=== PATIENT | female | born 1960 | race Caucasian/White ===

== ENCOUNTER 2016-08-24 11:10 | Outpatient (CLI) | payer OTHER ==
[2016-05-03 20:01] VITALS: BMI 27.4
[2016-08-24 11:28] VITALS: BP 132/74; TEMP 98.1
== END 2016-08-24 11:11 | disposition home or self-care (01) ==
LOC: LAB 11:10 → OPMED 11:11
PROVIDERS: ATTEND Family Medicine
DX: Z45.2 Encounter for adjustment and management of vascular access device (principal)
CPT/HCPCS: 96523

== ENCOUNTER 2016-10-01 10:44 | Emergency (ER) ==
[2016-10-01 10:54] VITALS: BP 131/92; TEMP 98; BMI 25.8
--- NOTE | 2016-10-01 15:09 | CT ---
EXAM: CT thoracic spine without contrast. HISTORY: Initial presentation for back pain at the T2 and L3 levels following a fall. COMPARISON: Chest CT 05/03/2016. TECHNIQUE: Multiple axial images of the thoracic spine were obtained without intravenous contrast. Images were reformatted in the sagittal and coronal planes. FINDINGS: Old burst fracture of T12 appears stable. Thoracic spine vertebral body heights are othe rwise normal with normal alignment. There is flattening of the ventral thecal sac at T11-12 due to retropulsion of the posterior-superior endplate of T12. Otherwise no significant spinal stenosis id entified in the thoracic spine. Scarring in the right upper lobe noted. Right-sided chest port is only partially imaged. IMPRESSION: 1. No acute abnormality of the thoracic spine. 2. Old T12 burst fracture.
--- NOTE | 2016-10-01 15:14 | CT ---
EXAM: CT of the lumbar spine without contrast History: Back trauma. Comparison: Thoracic spine CT 10/01/2016, lumbar spine CT 10/25/2015 Technique: Multiplanar CT images through the lumbar spine were obtained without the administration of IV contrast Findings: Atherosclerotic vascular calcifications. Stable posterior fusion hardware where at L3-L4. No acute fracture or subluxation. Chronic T12 compression deformity. Stable grade 1 anterolisthesi s of L4 on L5. Moderate to severe left-sided bony neural foraminal narrowing at L4-L5 and severe ri ght-sided bony neural foraminal narrowing at L5-S1 with possible exiting nerve root encroachment. Impression: 1. No acute osseous abnormality of the lumbar spine. 2. Stable hardware. 3. Moderate to severe left-sided bony neural foraminal narrowing at L4-L5. 4. Severe right-sided bony neural foraminal narrowing at L5-S1 with possible exiting nerve root enc roachment.
--- NOTE | 2016-10-01 15:19 | ED.PDOC ---
General ED Provider: Dr. ALEENA LOUIS JR Chief Complaint: Fall Stated Complaint: STEPPED IN CULVERT AND FELL. LANDED ON BACK. [ End ] 98.0 94 20 97% 131/92 01/24. SZ GERD ANX MIGR rsds HYST 8YRS. HYSTERECTOMY 8 yrs ago. LUMBAR FUSION 2004. cervical spine fusion. RIGHT ANKLE TENDON REPAIR. 14 HAND SURGERYS. PATIENT WITNESSED BY REGISTRATION LOWERING SELF TO FLOOR. DID NOT FALL HARD OR HIT HEAD. RENETTA SU RN WENT OUT TO PATIENT AND WHEN SHE WAS YUSUF GTO HELP PATIENT UP PATIENT STATED"DON'T PULL ON ME." PATIENT TREARFUL. WANTS TO MAKE COMPLAINT. [ End ]NECK BACK PELVIS ON RIGHT Time Seen by Physician: 14:20 Mode of Arrival: Walk-In Information Source: Patient Exam Limitations: No limitations, Clinical condition Nursing and Triage Documentation Reviewed and Agree: No Review of Systems - Review Of Systems Constitutional: Reports: No symptoms Eyes: Reports: No symptoms Ears, Nose, Mouth, Throat: Reports: No symptoms Respiratory: Reports: No symptoms Cardiac: Reports: No symptoms GI: Reports: No symptoms : Reports: No symptoms Musculoskeletal: Reports: Back pain, Neck pain Skin: Reports: Lesions, Lumps Neurological: Reports: Anxiety Endocrine: Reports: No symptoms Hematologic/Lymphatic: Reports: No symptoms All Other Systems: Other Past Medical History - Past Medical History Endocrine: Reports: None Cardiovascular: Reports: None Respiratory: Reports: None Hematological: Reports: None Gastrointestinal: Reports: GERD Genitourinary: Reports: None Neuro/Psych: Reports: Migraine, Seizure, Anxiety Musculoskeletal: Reports: None Cancer: Reports: None Last Menstrual Period: NA Other Pertinent Past Medical History: 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 - Surgical History General Surgical History: Reports: Hysterectomy, Back Surgery (LUMBAR FUSION cervical spine fusion) - Family History Family History: Reports: Unknown - Social History Smoking Status: Current some day smoker, Light tobacco smoker Hx Substance Use: No Alcohol Screening: Occasionally - Immunizations Tetanus Shot up to Date: Yes Physical Exam - Physical Exam Appearance: Ill-appearing Pain Distress: Moderate Eyes: NASIM, EOMI, Conjunctiva clear ENT: Ears normal, Nose normal, Oropharynx normal Neck: Supple Respiratory: Airway patent, Breath sounds clear, Breath sounds equal, Respirations nonlabored Cardiovascular: RRR, Pulses normal, No rub, No murmur GI/: Soft, Nontender, No masses, Bowel sounds normal, No Organomegaly Musculoskeletal: Normal strength, ROM intact, No edema, No calf tenderness ( tender t2 to left and tender to left of L3) Skin: Warm, Dry, Normal color Neurological: Sensation intact, Motor intact, Reflexes intact, Cranial nerves intact, Alert, Oriented (pain with sltraight leg raise not reproducible) Psychiatric: Affect appropriate, Mood appropriate Critical Care Note - Critical Care Note Total Time (mins): 0 Course - Course Orders, Labs, Meds: Orders Category Date Time Status Orphenadrine Citrate [Norflex] MEDS 10/01/16 15:57 Stat 60 mg IM ONCE STA CT LUMBAR SPINE W/O CONTRAST Stat RADS 10/01/16 14:[address] THORACIC SPINE W/O CONTRAST Stat RADS 10/01/16 14:29 Completed Medications Generic Name Dose Route Start Last Admin Trade Name Freq PRN Reason Stop Dose Admin Orphenadrine Citrate 60 mg 10/01/16 15:57 Norflex IM 10/01/16 15:58 ONCE STA Vital Signs: Temp Pulse Resp BP Pulse Ox 10/01/16 10:49 98 F 94 H 20 131/92 H 97 Departure - Departure Time of Disposition: 15:58 Disposition: HOME SELF-CARE Discharge Problem: Falls Back contusion Qualifiers: Encounter type: initial encounter Laterality: left Qualifier Code: (S20.222A) Contusion of left back wall of thorax, initial encounter Instructions: Contusion in Adults (ED) Condition: Good Pt referred to PMD for follow-up: Yes Additional Instructions: no lifting for three days avoid bed rest unless sleeping ice 20 minutes three times a day may use soma for spasms discuss with your physician Prescriptions: Carisoprodol [Soma] 350 mg PO TID PRN #14 tablet PRN Reason: Spasms Allergies/Adverse Reactions: Allergies carbamazepine [From Tegretol] Adverse Reaction (Verified 10/01/16 10:46) clonidine HCl [From Catapres] Adverse Reaction (Verified 10/01/16 10:46) divalproex sodium [From Depakote] Adverse Reaction (Verified 10/01/16 10:46) haloperidol [From Haldol] Adverse Reaction (Verified 10/01/16 10:46) haloperidol lactate [From Haldol] Adverse Reaction (Verified 10/01/16 10:46) indomethacin [From Indocin] Adverse Reaction (Verified 10/01/16 10:46) indomethacin sodium [From Indocin] Adverse Reaction (Verified 10/01/16 10:46) ketorolac tromethamine [From Toradol] Adverse Reaction (Verified 10/01/16 10:46) morphine Adverse Reaction (Verified 10/01/16 10:46) phenobarbital Adverse Reaction (Verified 10/01/16 10:46) phenytoin sodium [From Dilantin] Adverse Reaction (Verified 10/01/16 10:46) phenytoin sodium extended [From Dilantin] Adverse Reaction (Verified 10/01/16 10 :46) sumatriptan [From Imitrex] Adverse Reaction (Verified 10/01/16 10:46) sumatriptan succinate [From Imitrex] Adverse Reaction (Verified 10/01/16 10:46) Home Medications: Ambulatory Orders Oxycodone HCl/Acetaminophen [Percocet 10-325 mg Tablet] 10 - 325 mg PO QID PRN 03/13/13 Lamotrigine [Lamictal] 100 mg PO QDAC 12/20/14 Pantoprazole Sodium [Protonix] 40 mg PO DAILY 12/20/14 Sucralfate Susp [Carafate] 1 gm PO ACHS 12/20/14 Diphenhydramine HCl [Benadryl] 50 mg PO DAILY PRN 10/25/15 Carisoprodol [Soma] 350 mg PO DAILY 05/03/16 Clonazepam 2 mg PO TID #90 05/03/16 Lamotrigine [Lamictal] 200 mg PO BEDTIME 05/03/16 Quetiapine Fumarate [Seroquel] 300 mg PO BEDTIME #30 05/03/16 Trazodone HCl 100 mg PO BEDTIME #30 05/03/16 Zolpidem Tartrate [Ambien] 10 mg PO BEDTIME #30 05/03/16 Albuterol Sulfate [Proair Hfa] 2 puff IH BID 06/04/16 Budesonide [Pulmicort] 1 mg IH DAILY 06/04/16 Carisoprodol [Soma] 350 mg PO TID PRN #14 tablet 10/01/16
[2016-10-01] MEDS ORDERED: NORFLEX IM STA (15:57)
== END 2016-10-01 17:34 | disposition home or self-care (01) ==
LOC: ED 10:44
DX: S20.222A Contusion of left back wall of thorax, initial encounter (principal); M54.2 Cervicalgia; W19.XXXA Unspecified fall, initial encounter; F17.210 Nicotine dependence, cigarettes, uncomplicated
CPT/HCPCS: 96372; 99283

== ENCOUNTER 2017-01-30 19:04 | Emergency (ER) ==
[2017-01-30 19:17] VITALS: BP 141/104; TEMP 98.8; BMI 27.4
[2017-01-30 19:47] LABS: BASOPHILS % (AUTO) 0.5 % (0.0-3.0); EOSINOPHILS # (AUTO) 0.1 K/ul (0.0-0.7); HEMATOCRIT 38.4 % (37.0-47.0); HEMOGLOBIN 13.2 g/dl (12.0-16.0); IMMATURE GRANULOCYTE % (AUTO) 0.2 % (0.0-5.0); LYMPHOCYTES # (AUTO) 1.9 K/uL (0.60-3.4); LYMPHOCYTES % (AUTO) 31.5 (10.0-50.0); MEAN CORPUSCULAR HEMOGLOBIN 29.3 pg (27.0-31.0); MEAN CORPUSCULAR HGB CONC 34.4 (31.8-35.4); MEAN CORPUSCULAR VOLUME 85.3 fl (81.0-99.0); MONOCYTES # (AUTO) 0.3 K/uL (0.4-2.0); MONOCYTES % (AUTO) 5.6 (0-10); NEUTROPHILS # (AUTO) 3.7 K/ul (2.0-6.9); NEUTROPHILS % (AUTO) 61.2; PLATELET COUNT 290 10^3/uL (140-440); WHITE BLOOD COUNT 6.06 K/ul (4.6-10.2)
--- NOTE | 2017-01-30 20:05 | ED.PDOC ---
General ED Provider: Dr. LOLY DELEON Chief Complaint: Altered Mental Status Stated Complaint: Ambulance was called by a neighbour who though she was not acting herself. when she was picked up by EMT she was complaining of lower back pain. she states that she was seen in the hospital yesterday could not remember which hospital initally she make them think she was at [facility]. She was appraently at [facility]. Cousin who is the POA states that some times she gets confused and then the symtoms go away. Time Seen by Physician: 20:01 Mode of Arrival: Ambulance Information Source: Patient, EMT Exam Limitations: No limitations Seen Within Last 72 Hours for Same Complaint By: ED Nursing and Triage Documentation Reviewed and Agree: Yes Musculoskeletal Complaint Exam - Back Pain Complaint/Exam Mechanism of Injury: Reports: No known trauma Onset/Duration: this evening Symptoms Are: Still present Timing: Constant Location: Reports: Diffuse Character: Reports: Aching, Spasmodic Aggravating: Reports: Movements, Bending Alleviating: Reports: None TAD Risk Factors: Reports: None AAA Risk Factors: Reports: None Cauda Equina Risk Factors: Reports: None Focal Tenderness: Yes (lower back ) Paraspinal Muscle Tenderness: Yes Paraspinal Muscle Spasm: Yes Scoliosis: No Lordosis: No Kyphosis: No SLR Test: Right Negative, Left Negative Hip Motion Testing Pain: Right Negative, Left Negative Focal Weakness: Present: None Focal Sensory Loss: Present: None Gait: Present: Unable Back Picture: 1 - pain and tenderness to palpation Differential Diagnoses: Herniated Disk, Strain, Sprain Review of Systems - Review Of Systems Constitutional: Reports: No symptoms Eyes: Reports: No symptoms Ears, Nose, Mouth, Throat: Reports: No symptoms Respiratory: Reports: No symptoms Cardiac: Reports: No symptoms GI: Reports: No symptoms : Reports: No symptoms Musculoskeletal: Reports: Back pain, Joint pain Skin: Reports: No symptoms Neurological: Reports: Cognitive dysfunction Endocrine: Reports: No symptoms Hematologic/Lymphatic: Reports: No symptoms All Other Systems: Reviewed and Negative Past Medical History - Past Medical History Endocrine: Reports: None Cardiovascular: Reports: None Respiratory: Reports: None Hematological: Reports: None Gastrointestinal: Reports: GERD Genitourinary: Reports: None Neuro/Psych: Reports: Migraine, Seizure, Anxiety Musculoskeletal: Reports: None Cancer: Reports: None Last Menstrual Period: many years ago Other Pertinent Past Medical History: 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 - Surgical History General Surgical History: Reports: Hysterectomy, Back Surgery (LUMBAR FUSION cervical spine fusion) - Family History Family History: Reports: Unknown - Social History Smoking Status: Current every day smoker Hx Substance Use: No Alcohol Screening: None Lives: In Assisted Living - Immunizations Tetanus Shot up to Date: Yes Physical Exam - Physical Exam Appearance: Ill-appearing Ill-appearing: Mild Pain Distress: Moderate Neck: Supple Respiratory: Airway patent, Breath sounds clear, Breath sounds equal, Respirations nonlabored Cardiovascular: RRR, Pulses normal, No rub, No murmur GI/: Soft, Nontender, No masses Musculoskeletal: Normal strength, No edema, No calf tenderness, Limited ROM ( back ) Skin: Warm, Dry Neurological: Alert, Oriented (x 2) Psychiatric: Anxious Interpretation - Radiology Interpretation Radiology Interpretation By: Radiologist Radiology Results: Negative Exam Interpreted: CT Scan (head ) Critical Care Note - Critical Care Note Total Time (mins): 15 Comments: Records form [place] including CT Thorax, and lumbar spine without contrast there is T12 compression that looks chronic and spinal listhesis of L4-5 with hardware Course - Course Hematology/Chemistry: 01/30/17 19:40 01/30/17 19:40 Orders, Labs, Meds: Lab Review 01/30/17 19:40 WBC 6.06 RBC 4.50 Hgb 13.2 Hct 38.4 MCV 85.3 MCH 29.3 MCHC 34.4 RDW Coeff of Amadou 15.4 H Plt Count 290 Immature Gran % (Auto) 0.2 Neut % (Auto) 61.2 Lymph % (Auto) 31.5 Upson % (Auto) 5.6 Eos % (Auto) 1.0 Baso % (Auto) 0.5 Immature Gran # (Auto) 0.0 Neut # 3.7 Lymph # 1.9 Upson # 0.3 L Eos # 0.1 Baso # 0.0 Sodium 138 Potassium 4.2 Chloride 103 Carbon Dioxide 25 Anion Gap 14.2 BUN 18 Creatinine 0.90 Estimated GFR (MDRD) 65.00 BUN/Creatinine Ratio 20.00 Glucose 89 Calcium 9.5 Total Bilirubin 0.28 AST 26 ALT 17 Alkaline Phosphatase 65 Total Protein 6.9 Albumin 3.8 Globulin 3.1 Albumin/Globulin Ratio 1.23 Orders Category Date Time Status CBC W/ AUTO DIFF Stat LAB 01/30/17 19:40 Completed COMPREHENSIVE METABOLIC PANEL Stat LAB 01/30/17 19:40 Completed DRUG SCREEN, URINE, RAPID Stat LAB 01/30/17 19:30 Ordered Dexamethasone 4 mg/ml Inj [Decadron 4 mg/ml Sdv] MEDS 01/30/17 20:11 Discontinued 8 mg IM ONCE STA CT HEAD W/O CONTRAST Stat RADS 01/30/17 19:30 Completed Medications Discontinued Medications Generic Name Dose Route Start Last Admin Trade Name Freq PRN Reason Stop Dose Admin Dexamethasone Sodium Phosphate 8 mg 01/30/17 20:11 01/30/17 20:27 Decadron 4 Mg/Ml Sdv IM 01/30/17 20:12 8 mg ONCE STA Administration Vital Signs: Temp Pulse Resp BP Pulse Ox 01/30/17 19:04 98.8 F 85 20 141/104 H 97 Departure - Departure Time of Disposition: 20:58 Disposition: HOME SELF-CARE Discharge Problem: Backache, Altered mental status Chronic lower back pain Qualifiers: Back pain laterality: bilateral Sciatica presence: without sciatica Qualifier Code: (M54.5) Low back pain Instructions: Chronic Back Pain (ED) Condition: Fair Pt referred to PMD for follow-up: Yes Additional Instructions: Continue home medications Follow up with PC in 3 days Allergies/Adverse Reactions: Allergies carbamazepine [From Tegretol] Adverse Reaction (Verified 01/30/17 19:13) clonidine HCl [From Catapres] Adverse Reaction (Verified 01/30/17 19:13) divalproex sodium [From Depakote] Adverse Reaction (Verified 01/30/17 19:13) haloperidol [From Haldol] Adverse Reaction (Verified 01/30/17 19:13) haloperidol lactate [From Haldol] Adverse Reaction (Verified 01/30/17 19:13) indomethacin [From Indocin] Adverse Reaction (Verified 01/30/17 19:13) indomethacin sodium [From Indocin] Adverse Reaction (Verified 01/30/17 19:13) ketorolac tromethamine [From Toradol] Adverse Reaction (Verified 01/30/17 19:13) morphine Adverse Reaction (Verified 01/30/17 19:13) phenobarbital Adverse Reaction (Verified 01/30/17 19:13) phenytoin sodium [From Dilantin] Adverse Reaction (Verified 01/30/17 19:13) phenytoin sodium extended [From Dilantin] Adverse Reaction (Verified 01/30/17 19 :13) sumatriptan [From Imitrex] Adverse Reaction (Verified 01/30/17 19:13) sumatriptan succinate [From Imitrex] Adverse Reaction (Verified 01/30/17 19:13) Home Medications: Ambulatory Orders Oxycodone HCl/Acetaminophen [Percocet 10-325 mg Tablet] 10 - 325 mg PO QID PRN 03/13/13 Lamotrigine [Lamictal] 100 mg PO QDAC 12/20/14 Pantoprazole Sodium [Protonix] 40 mg PO BID 12/20/14 Lamotrigine [Lamictal] 200 mg PO BEDTIME 05/03/16 Carisoprodol [Soma] 350 mg PO TID PRN #14 tablet 10/01/16 Disposition Discussed With: Patient
[2017-01-30 20:06] LABS: ALBUMIN 3.8 g/dL (3.4-5.0); ALBUMIN/GLOBULIN RATIO 1.23; ANION GAP 14.2; BILIRUBIN,TOTAL 0.28 mg/dL (0.00-1.20); CALCIUM 9.5 mg/dL (8.2-10.2); CREATININE 0.9 mg/dL (0.60-1.30); POTASSIUM 4.2 mmol/L (3.5-5.10); TOTAL PROTEIN 6.9 g/dL (6.4-8.2)
[2017-01-30] MEDS ORDERED: DECADRON 4 MG/ML SDV IM STA (20:11)
--- NOTE | 2017-01-30 20:26 | CT ---
EXAM: CT head without contrast 01/30/2017. Sagittal and coronal reformatted images obtained HISTORY: Mental status changes COMPARISON: 06/24/2015 FINDINGS: There is no evidence of intracranial hemorrhage. The midline is maintained. There is no hydrocephalus. Generalized atrophy. Chronic small vessel ischemic changes. No cerebellar tonsilla r ectopia. Evaluation of the calvarium shows no fracture. The mastoid air cells are normally pneum atized. IMPRESSION: No acute intracranial abnormality.
[2017-01-30] MEDS ORDERED: ZOFRAN ODT PO STA (20:44)
== END 2017-01-30 21:20 | disposition home or self-care (01) ==
LOC: ED 19:04
DX: M54.5 Low back pain (principal); R41.82 Altered mental status, unspecified; F17.210 Nicotine dependence, cigarettes, uncomplicated; Z79.899 Other long term (current) drug therapy
CPT/HCPCS: 36415; 80053; 85025; 96372; 99283

== ENCOUNTER 2017-05-02 10:22 | Emergency (ER) ==
[2017-05-02 10:23] VITALS: BMI 27.4
[2017-05-02 10:26] VITALS: BP 121/81; TEMP 99.3
--- NOTE | 2017-05-02 10:40 | ED.PDOC ---
General ED Provider: Dr. ALEENA LOUIS JR Chief Complaint: Back Pain Stated Complaint: patient states she was feeding her cat and she twisted hurting her middle and lower back.states she did not fall.states it was close.c/ o numbness to right thigh.[End]99.3 91 20 97% 121/81 810 Time Seen by Physician: 10:39 Mode of Arrival: Wheelchair Information Source: Patient Exam Limitations: No limitations Primary Care Provider: REKHA ZAMBRANO Nursing and Triage Documentation Reviewed and Agree: No Review of Systems - Review Of Systems Constitutional: Reports: No symptoms Eyes: Reports: No symptoms Ears, Nose, Mouth, Throat: Reports: No symptoms Respiratory: Reports: No symptoms Cardiac: Reports: No symptoms GI: Reports: No symptoms : Reports: No symptoms Musculoskeletal: Reports: Muscle pain (right thigh thoracic lumbar), Other Skin: Reports: No symptoms Neurological: Reports: No symptoms Endocrine: Reports: No symptoms Hematologic/Lymphatic: Reports: No symptoms All Other Systems: Other Past Medical History - Past Medical History Endocrine: Reports: None Cardiovascular: Reports: None Respiratory: Reports: None Hematological: Reports: None Gastrointestinal: Reports: GERD Genitourinary: Reports: None Neuro/Psych: Reports: Migraine, Seizure, Anxiety Musculoskeletal: Reports: None Cancer: Reports: None Last Menstrual Period: n/a Other Pertinent Past Medical History: 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 - Surgical History General Surgical History: Reports: Hysterectomy, Back Surgery (LUMBAR FUSION cervical spine fusion) - Family History Family History: Reports: Unknown - Social History Smoking Status: Current every day smoker Hx Substance Use: No Alcohol Screening: None Physical Exam - Physical Exam Appearance: Well-appearing Pain Distress: Mild Respiratory: Airway patent Cardiovascular: RRR GI/: Soft Musculoskeletal: Normal strength, ROM intact, No edema, No calf tenderness ( tender along right lumbar paraspinals and right t4 paraspinal complans of pain spasm nausea) Neurological: Alert, Oriented Psychiatric: Affect appropriate, Mood appropriate Interpretation - Radiology Interpretation Radiology Interpretation By: Radiologist Radiology Results: No acute changes Exam Interpreted: CT Scan (LS SPINE) Critical Care Note - Critical Care Note Total Time (mins): 0 Course - Course Orders, Labs, Meds: Orders Category Date Time Status Meperidine HCl/Pf [Demerol 25 mg/ml Vial] MEDS 05/02/17 11:09 Discontinued 25 mg IM ONCE STA Ondansetron HCl/Pf [Zofran 4 mg/2 ml] MEDS 05/02/17 11:09 Discontinued 4 mg IM ONCE STA CT LUMBAR SPINE W/O CONTRAST Stat RADS 05/02/17 10:57 Completed Medications Discontinued Medications Generic Name Dose Route Start Last Admin Trade Name Freq PRN Reason Stop Dose Admin Meperidine HCl 25 mg 05/02/17 11:09 05/02/17 11:17 Demerol 25 Mg/Ml Vial IM 05/02/17 11:10 25 mg ONCE STA Administration Ondansetron HCl 4 mg 05/02/17 11:09 05/02/17 11:17 Zofran 4 Mg/2 Ml IM 05/02/17 11:10 4 mg ONCE STA Administration Vital Signs: Temp Pulse Resp BP Pulse Ox 05/02/17 10:24 99.3 F 91 H 20 121/81 97 Departure - Departure Time of Disposition: 13:01 Disposition: HOME SELF-CARE Discharge Problem: Back strain Qualifiers: Encounter type: initial encounter Qualified Code(s): S39.012A - Strain of muscle, fascia and tendon of lower back, initial encounter Instructions: Low Back Strain (ED), Lower Back Exercises (ED), Upper Back Exercises (GEN), Core Strengthening Exercises (ED) Condition: Good Pt referred to PMD for follow-up: Yes Additional Instructions: follow up PMD discuss medications call today for follow up consider back surgeon evaluation xrays indicate no new injury may use Flexeril for spasm if OK with PMD Prescriptions: Cyclobenzaprine HCl [Flexeril] 5 mg PO TID PRN #15 tablet PRN Reason: Spasms Allergies/Adverse Reactions: Allergies carbamazepine [From Tegretol] Adverse Reaction (Verified 05/02/17 10:27) clonidine HCl [From Catapres] Adverse Reaction (Verified 05/02/17 10:27) divalproex sodium [From Depakote] Adverse Reaction (Verified 05/02/17 10:27) haloperidol [From Haldol] Adverse Reaction (Verified 05/02/17 10:27) haloperidol lactate [From Haldol] Adverse Reaction (Verified 05/02/17 10:27) indomethacin [From Indocin] Adverse Reaction (Verified 05/02/17 10:27) indomethacin sodium [From Indocin] Adverse Reaction (Verified 05/02/17 10:27) ketorolac tromethamine [From Toradol] Adverse Reaction (Verified 05/02/17 10:27) morphine Adverse Reaction (Verified 05/02/17 10:27) phenobarbital Adverse Reaction (Verified 05/02/17 10:27) phenytoin sodium [From Dilantin] Adverse Reaction (Verified 05/02/17 10:27) phenytoin sodium extended [From Dilantin] Adverse Reaction (Verified 05/02/17 10 :27) sumatriptan [From Imitrex] Adverse Reaction (Verified 05/02/17 10:27) sumatriptan succinate [From Imitrex] Adverse Reaction (Verified 05/02/17 10:27) Home Medications: Ambulatory Orders Oxycodone HCl/Acetaminophen [Percocet 10-325 mg Tablet] 10 - 325 mg PO QID PRN 03/13/13 Lamotrigine [Lamictal] 100 mg PO QDAC 12/20/14 Pantoprazole Sodium [Protonix] 40 mg PO BID 12/20/14 Lamotrigine [Lamictal] 200 mg PO BEDTIME 05/03/16 Cyclobenzaprine HCl [Flexeril] 5 mg PO TID PRN #15 tablet 05/02/17
[2017-05-02] MEDS ORDERED: DEMEROL 25 MG/ML SYRINGE IVP STA (11:00)
[2017-05-02] MEDS ORDERED: ZOFRAN 4 MG/2 ML IVP STA (11:00)
[2017-05-02] MEDS ORDERED: DEMEROL 25 MG/ML VIAL IM STA (11:09)
[2017-05-02] MEDS ORDERED: ZOFRAN 4 MG/2 ML IM STA (11:09)
--- NOTE | 2017-05-02 12:21 | CT ---
EXAM: CT lumbar spine without contrast. HISTORY: Initial presentation for back pain following a fall. Audible pop. Previous lumbar surgery . COMPARISON: 10/01/2016. TECHNIQUE: Multiple axial images of the lumbar spine were obtained without intravenous contrast. Im ages were reformatted in the sagittal and coronal planes. FINDINGS: Posterior lumbar interbody fusion and laminectomy changes seen at L3-4. Hardware appears intact. There is 0.6 cm anterolisthesis of L4 on L5 with moderate disc space narrowing. Alignment i s otherwise normal. Right superior endplate compression deformity of L2 and moderate wedging deformi ty of T12 appear stable. Vertebral body heights are otherwise normal. No acute fracture identified. Paravertebral soft tissues are without acute abnormality. Multilevel degenerative changes are stab le. No acute central canal stenosis identified. Mild spinal stenosis at T11-12 due to retropulsion of the posterior-superior endplate of T12 appear stable. Multilevel neural foraminal narrowing is st able, greatest at L4-5 on the lateral and L5-S1 on the right. IMPRESSION: No acute abnormality of the lumbar spine.
== END 2017-05-02 13:17 | disposition home or self-care (01) ==
LOC: ED 10:22
DX: S39.012A Strain of muscle, fascia and tendon of lower back, initial encounter (principal); R20.0 Anesthesia of skin; X50.1XXA Overexertion from prolonged static or awkward postures, initial encounter; F17.210 Nicotine dependence, cigarettes, uncomplicated
CPT/HCPCS: 96372; 99283

== ENCOUNTER 2017-07-04 14:55 | Outpatient (CLI) | payer OTHER | END 2017-07-04 14:56 | disposition short-term general hospital (02) | LOC: AMBL 14:55 | PROVIDERS: ATTEND Emergency Medicine | DX: M25.561 Pain in right knee (principal); M25.511 Pain in right shoulder; M54.2 Cervicalgia; M54.5 Low back pain; W00.0XXA Fall on same level due to ice and snow, initial encounter ==

== ENCOUNTER 2017-08-04 07:37 | Emergency (ER) ==
[2017-08-04] MEDS ORDERED: MORPHINE 2 MG/ML SYRINGE IM STA (07:46)
[2017-08-04] MEDS ORDERED: ZOFRAN 4 MG/2 ML IM STA (07:47)
[2017-08-04] MEDS ORDERED: DEMEROL 25 MG/ML VIAL IM STA (07:47)
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
[2017-08-04 07:49] VITALS: BP 94/67; TEMP 99.4; BMI 26.6
== END 2017-08-04 08:39 | disposition home or self-care (01) ==
LOC: ED 07:37
DX: R51 Headache (principal); F17.210 Nicotine dependence, cigarettes, uncomplicated
CPT/HCPCS: 96372; 99283

== ENCOUNTER 2017-09-16 10:44 | Day surgery (SDC) | payer OTHER ==
[2017-09-16] MEDS ORDERED: LIDOCAINE 1% 20 ML MDV ID STA (11:13)
[2017-09-16] MEDS ORDERED: LIDOCAINE HCL 2% LUER-JET ONE (11:50)
[2017-09-16] MEDS ORDERED: VERSED ONE (11:50)
[2017-09-16] MEDS ORDERED: DIPRIVAN 20 ML VIAL IVP ONE (11:50)
[2017-09-16] MEDS: HEPARIN 500 UNIT/5 ML (PORT ACCESS TRAY ONLY) IVF ONE ×2 (12:24→12:25)
[2017-09-16] MEDS ORDERED: SALINE FLUSH (PORT ACCESS TRAY USE ONLY) IVF ONE (12:34)
--- NOTE | 2017-09-17 11:17 | OP ---
PROCEDURE: EGD (ESOPHAGOGASTRODUODENOSCOPY) WITH TUCKER DILATATION. ENDOSCOPIST: Napoleon MUNIZ M.D. INDICATION: DYSPHAGIA INSTRUMENT: GIFH-190. MEDICATION: PER ANESTHESIA. PROCEDURE: The patient was positioned for endoscopy. The oropharynx was sprayed with Cetacaine spray and the endoscope was advanced through the bite block into the esophagus and from there advanced to the duodenum. The duodenum was normal. The pylorus was patent. The antrum is normal. Retroflex exam reveals normal cardia. Mild inflammation and narrowing at the GE junction. The remaining esophagus was normal. Scope was withdrawn and a 46 Tucker was passed with moderate resistance. She tolerated the procedure without immediate complication. PLAN: 1. Repeat as needed. MTDD
[2017-09-17 14:02] VITALS: BP 122/67; TEMP 97.6
== END 2017-09-16 12:45 | disposition home or self-care (01) ==
LOC: SURG 10:44
PROVIDERS: ATTEND Internal Medicine Gastroenterology
DX: R13.10 Dysphagia, unspecified (principal); K20.9 Esophagitis, unspecified; K22.2 Esophageal obstruction

== ENCOUNTER 2017-10-10 10:37 | Outpatient (CLI) | payer OTHER | END 2017-10-10 10:38 | disposition home or self-care (01) | LOC: LAB 10:37 | PROVIDERS: ATTEND Pain Medicine Interventional Pain Medicine | DX: Z51.81 Encounter for therapeutic drug level monitoring (principal); Z79.891 Long term (current) use of opiate analgesic; F19.20 Other psychoactive substance dependence, uncomplicated | CPT/HCPCS: 36415; 80053; 82248; 84100 ==

== ENCOUNTER 2018-03-02 08:59 | Emergency (ER) ==
[2018-03-02 09:15] VITALS: BP 119/74; TEMP 97; BMI 27.1
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
--- NOTE | 2018-03-02 10:57 | CT ---
EXAM: CT scan head without contrast. HISTORY: Altered mental status COMPARISON: CT, 01/30/2017 TECHNIQUE: Axial scans acquired 5 mm slice thicknesses. MPR coronal and sagittal sequences completed FINDINGS: There is no subdural hematoma or intracranial hemorrhage seen. There is no shift of midli ne structures. Chan-white matter differentiation is maintained. Ventricles are normal in size. The paranasal sinuses and mastoid air cells appear clear. IMPRESSION: No acute intracranial finding identified No intracranial hemorrhage, CVA, mass or hydrocephalus is seen.
--- NOTE | 2018-03-02 10:59 | CT ---
EXAM: Noncontrast CT of the thoracic spine HISTORY: Pain post fall COMPARISON: 02/20/2018 radiographs, 10/01/2016 CT TECHNIQUE: Axial noncontrast CT of the thoracic spine with sagittal and coronal reformats. FINDINGS: Remote T12 burst fracture is again seen. Remote fracture of the superior endplate of L2 is also re-i dentified. The other thoracic vertebrae bodies are normal in height. No acute thoracic spine fractu res are seen. There is mild multilevel anterior osteophyte formation. Multilevel facet uropathy is also seen. No significant listhesis is identified. There is similar mild spinal canal stenosis at T 12 due to the remote burst fracture. A right-sided central line is seen. Right upper lobe scarring i s noted. IMPRESSION: No evidence of acute osseous injury to the thoracic spine. Remote T12 burst fracture. Remote L2 superior endplate fracture.
[2018-03-02] MEDS ORDERED: LIDOCAINE HCL 1% SDV SUBCUT STA (17:22)
[2018-03-02] MEDS ORDERED: KEFLEX PO STA (17:58)
[2018-03-02] MEDS ORDERED: LIDOCAINE HCL 1% SDV ONE (18:00)
--- NOTE | 2018-03-03 01:34 | DI ---
EXAM: Chest 1 view. HISTORY: Anterior chest wall pain COMPARISON: 05/29/2016 FINDINGS: Heart size is normal. There is a right-sided Port-A-Cath seen with tip at the level of the central SVC. No pneumothorax The lungs are clear without localized pulmonary infiltrate or pneumon ia. There is no pleural fluid. Skeletal structures are unremarkable. IMPRESSION: 1. No acute cardiopulmonary findings 2. Stable position of right sided Port-A-Cath.
== END 2018-03-02 18:15 | disposition home or self-care (01) ==
LOC: ED 08:59
DX: S61.512A Laceration without foreign body of left wrist, initial encounter (principal); R41.82 Altered mental status, unspecified; F20.9 Schizophrenia, unspecified; F31.9 Bipolar disorder, unspecified; T07.XXXA Unspecified multiple injuries, initial encounter; W45.8XXA Other foreign body or object entering through skin, initial encounter; Z79.899 Other long term (current) drug therapy; F17.210 Nicotine dependence, cigarettes, uncomplicated; M54.9 Dorsalgia, unspecified; G89.29 Other chronic pain; M79.603 Pain in arm, unspecified; W19.XXXA Unspecified fall, initial encounter
CPT/HCPCS: 36415; 80053; 80306; 80307; 82550; 82553; 85025; 93005; 93010; 99284

== ENCOUNTER 2018-03-17 10:37 | Day surgery (SDC) | payer OTHER ==
[2018-03-17] MEDS ORDERED: LIDOCAINE 1% 20 ML MDV ID STA (12:33)
[2018-03-17 12:46] VITALS: TEMP 97.2
[2018-03-17] MEDS ORDERED: VERSED ONE (13:45)
[2018-03-17] MEDS ORDERED: DIPRIVAN 20 ML VIAL IVP ONE (13:45)
[2018-03-17 14:30] VITALS: BP 103/62
--- NOTE | 2018-03-18 13:59 | OP ---
PROCEDURE: EGD (ESOPHAGOGASTRODUODENOSCOPY) WITH TUCKER DILATATION. ENDOSCOPIST: Napoleon MUNIZ M.D. INDICATION: DYSPHAGIA. INSTRUMENT: GIFH-190. TUCKER DILATOR 48 PERSIAN. MEDICATION: PER ANESTHESIA. PROCEDURE: The patient was positioned for endoscopy. The oropharynx was sprayed with Cetacaine spray and the endoscope was advanced through the bite block into the esophagus and from there advanced to the duodenum. The duodenum was normal. The pylorus was patent. The antrum is grossly normal. Retroflex exam reveals a normal cardia. She does have a hiatal hernia. Z -line is at 30 cm. Remaining esophagus was normal. A 48 [place] Tucker was passed with resistance at the GE junction. She tolerated the procedure without immediate complication. PLAN: 1. Repeat as needed. MTDD
== END 2018-03-17 14:50 | disposition home or self-care (01) ==
LOC: SURG 10:37
PROVIDERS: ATTEND Internal Medicine Gastroenterology
DX: R13.10 Dysphagia, unspecified (principal)

== ENCOUNTER 2018-08-24 17:50 | Emergency (ER) ==
[2018-08-24 17:59] VITALS: BP 132/84; TEMP 100; BMI 24.3
[2018-08-24] MEDS ORDERED: DEMEROL 50 MG/ML VIAL IM STA (18:33)
[2018-08-24] MEDS ORDERED: PHENERGAN 25 MG/ML VIAL IM STA (18:33)
--- NOTE | 2018-08-24 19:32 | CT ---
EXAM: CT scan of the cervical spine without contrast HISTORY: Fall TECHNIQUE: Helical imaging of the cervical spine was performed without contrast. Sagittal and coron al reconstructions and axial images were provided for interpretation. FINDINGS: There is straightening of the cervical spine. The occipital condyles, C1 ring appear inta ct. The odontoid process and C2 vertebral body appear normal. The spinous processes are intact. Th ere appears to be fusion along the endplates of the C5 and C6 vertebral bodies. There is a normal al ignment of the facet joints. No acute fractures are seen. IMPRESSION: No evidence of acute fracture dislocation seen within the cervical spine.
--- NOTE | 2018-08-24 19:35 | CT ---
EXAM: CT thoracic spine without contrast TECHNIQUE: Helical CT of the thoracic spine was performed without contrast with coronal and sagittal reconstructions COMPARISON: Cervical and lumbar spine CT from today and thoracic spine CT from 03/02/2018 HISTORY: Trauma FINDINGS: There is no acute fracture or dislocation or subluxation. There is a chronic compression f racture of the superior endplate of T12 with minimal retropulsion of the superior endplate. There is no acute compression fracture. There is no significant bony effacement of the canal. The lamina an d facets are intact. There is no transverse or spinous process fracture. There are no rib fractures seen. There is no pneumothorax in the visualized lung betts. There is some continued scarring in the right upper lung field which is unchanged. There is mild generalized degenerative change. IMPRESSION: 1. Chronic compression fracture of T12 as described. No acute intervening compression fracture is s een.
--- NOTE | 2018-08-24 19:40 | CT ---
EXAM: CT lumbar spine without contrast. HISTORY: Fall. PROCEDURE: Contiguous axial CT images of the lumbar spine without contrast with coronal and sagittal reformats. FINDINGS: Comparison made with CT of 05/02/2017. There are bilateral pedicle screws and spinal rods at L3 and L4 which are intact and in adequate position. There is chronic 5 mm anterolisthesis of L4 on L5. There is a stable chronic L2 compression fracture. No evidence of acute fracture in the lumb ar spine. There is disc space narrowing at L4-L5. There is vacuum disc phenomenon at L4-L5 and L5, S1. There is a small disc bulge at L5, S1. There is multilevel facet arthropathy. CT thoracic spin e of 08/24/2018 dictated separately. Impression: No evidence of acute fracture. Chronic L2 compression fracture. Chronic 5 mm anterolisthesis of L4 on L5. L3-L4 fusion as described. Small disc bulge at L5, S1. Degenerative changes as described.
--- NOTE | 2018-08-24 19:45 | ED.PDOC ---
General ED Provider: Dr. LESIA PEÑA-ER Chief Complaint: Back Pain Stated Complaint: i slipped on a rug--hurt my neck and back Time Seen by Physician: 18:00 Mode of Arrival: Walk-In Information Source: Patient Exam Limitations: No limitations Primary Care Provider: KUMAR VILLATORO Nursing and Triage Documentation Reviewed and Agree: Yes Does patient meet sepsis criteria?: No System Inflammatory Response Syndrome: Not Applicable Sepsis Protocol: For patient's 13 years and over: Temp is 96.8 and below OR 101 and greater Pulse >90 BPM Resp >20/minute Acutely Altered Mental Status Are patient's symptoms suggestive of a new infection, such as: -Pneumonia -Skin, Soft Tissue -Endocarditis -UTI -Bone, Joint Infection -Implantable Device -Acute Abdominal Infection -Wound Infection -Meningitis -Blood Stream Catheter Infection -Unknown Musculoskeletal Complaint Exam - Back Pain Complaint/Exam Mechanism of Injury: Reports: Trauma Onset/Duration: one hour Symptoms Are: Still present Timing: Constant Initial Severity: Mild Current Severity: Mild Location: Reports: Discrete Character: Reports: Dull, Aching, Spasmodic, Stiffness Aggravating: Reports: Movements, Lifting, Bending Alleviating: Reports: None Associated Signs and Symptoms: Denies: Swelling, Redness, Bruising, Fever, Weakness, Numbness, Tingling, Abdominal pain, Flank pain, Bladder incontinence, Bowel incontinence, Weight loss, Pain with weight bearing Related Surgical History: Reports: None Focal Tenderness: Yes Paraspinal Muscle Tenderness: Yes Paraspinal Muscle Spasm: No Scoliosis: No Lordosis: No Kyphosis: No SLR Test: Right Negative, Left Negative Hip Motion Testing Pain: Right Negative, Left Negative Focal Weakness: Present: None Focal Sensory Loss: Present: None Gait: Present: Normal Differential Diagnoses: Herniated Disk Review of Systems - Review Of Systems Constitutional: Reports: No symptoms Eyes: Reports: No symptoms Ears, Nose, Mouth, Throat: Reports: No symptoms Respiratory: Reports: No symptoms Cardiac: Reports: No symptoms GI: Reports: No symptoms : Reports: No symptoms Musculoskeletal: Reports: Back pain, Neck pain Skin: Reports: No symptoms Neurological: Reports: No symptoms Endocrine: Reports: No symptoms Hematologic/Lymphatic: Reports: No symptoms All Other Systems: Reviewed and Negative Past Medical History - Past Medical History Previously Healthy: Yes Endocrine: Reports: None Cardiovascular: Reports: None Respiratory: Reports: None Hematological: Reports: None Gastrointestinal: Reports: GERD Genitourinary: Reports: None Neuro/Psych: Reports: Migraine, Seizure, Anxiety Musculoskeletal: Reports: None Cancer: Reports: None Last Menstrual Period: na Other Pertinent Past Medical History: 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 - Surgical History General Surgical History: Reports: Hysterectomy, Back Surgery (LUMBAR FUSION cervical spine fusion) - Family History Family History: Reports: Unknown - Social History Smoking Status: Current some day smoker Hx Substance Use: No Alcohol Screening: None - Immunizations Tetanus Shot up to Date: Yes Physical Exam - Physical Exam Appearance: Well-appearing, No pain distress, Well-nourished Pain Distress: Mild Eyes: NASIM, EOMI, Conjunctiva clear ENT: Ears normal, Nose normal, Oropharynx normal Neck: Supple Respiratory: Airway patent, Breath sounds clear, Breath sounds equal, Respirations nonlabored Cardiovascular: RRR, Pulses normal, No rub, No murmur GI/: Soft, Nontender, No masses, Bowel sounds normal, No Organomegaly Musculoskeletal: Normal strength, ROM intact, No edema, No calf tenderness Skin: Warm, Dry, Normal color Neurological: Sensation intact, Motor intact, Reflexes intact, Cranial nerves intact, Alert, Oriented Psychiatric: Affect appropriate Interpretation - Radiology Interpretation Radiology Interpretation By: Radiologist Radiology Results: Negative Exam Interpreted: CT Scan Re-Evaluation - Re-Evaluation Time of Re-Evaluation: 19:44 Status: Improved Vital Signs Stable: Yes Pain Level: 1 Appearance: NAD Lungs: Clear Skin: Warm and Dry Neuro: Alert and Oriented X3 CV: RRR - Re-Evaluation Skin: Other Critical Care Note - Critical Care Note Total Time (mins): 0 Course - Course Orders, Labs, Meds: Orders Category Date Time Status Meperidine HCl/Pf [Demerol 50 mg/ml Vial] MEDS 08/24/18 18:33 Discontinued 50 mg IM ONCE STA Promethazine HCl [Phenergan 25 mg/ml Vial] MEDS 08/24/18 18:33 Discontinued 25 mg IM ONCE STA CT CERVICAL SPINE W/O CONTRAST Stat RADS 08/24/18 18:[address] LUMBAR SPINE W/O CONTRAST Stat RADS 08/24/18 18:[address] THORACIC SPINE W/O CONTRAST Stat RADS 08/24/18 18:32 Completed Medications Discontinued Medications Generic Name Dose Route Start Last Admin Trade Name Freq PRN Reason Stop Dose Admin Meperidine HCl 50 mg 03/10/19 18:33 08/24/18 18:40 Demerol 50 Mg/Ml Vial IM 08/24/18 18:34 50 mg ONCE STA Administration Promethazine HCl 25 mg 08/24/18 18:33 08/24/18 18:40 Phenergan 25 Mg/Ml Vial IM 08/24/18 18:34 25 mg ONCE STA Administration Vital Signs: Temp Pulse Resp BP Pulse Ox 08/24/18 17:54 100 F H 93 H 20 132/84 100 Departure - Departure Time of Disposition: 19:45 Disposition: HOME SELF-CARE Discharge Problem: Backache Instructions: Low Back Strain (ED) Condition: Good Pt referred to PMD for follow-up: No IPMP verified?: No Additional Instructions: f/u with pcp Allergies/Adverse Reactions: Allergies carbamazepine [From Tegretol] Adverse Reaction (Verified 05/02/17 10:27) clonidine HCl [From Catapres] Adverse Reaction (Verified 05/02/17 10:27) divalproex sodium [From Depakote] Adverse Reaction (Verified 05/02/17 10:27) fentanyl Adverse Reaction (Verified 08/24/18 18:01) haloperidol [From Haldol] Adverse Reaction (Verified 05/02/17 10:27) haloperidol lactate [From Haldol] Adverse Reaction (Verified 05/02/17 10:27) indomethacin [From Indocin] Adverse Reaction (Verified 05/02/17 10:27) indomethacin sodium [From Indocin] Adverse Reaction (Verified 05/02/17 10:27) ketorolac tromethamine [From Toradol] Adverse Reaction (Verified 05/02/17 10:27) morphine Adverse Reaction (Verified 05/02/17 10:27) phenobarbital Adverse Reaction (Verified 05/02/17 10:27) phenytoin sodium [From Dilantin] Adverse Reaction (Verified 05/02/17 10:27) phenytoin sodium extended [From Dilantin] Adverse Reaction (Verified 05/02/17 10 :27) sumatriptan [From Imitrex] Adverse Reaction (Verified 05/02/17 10:27) sumatriptan succinate [From Imitrex] Adverse Reaction (Verified 05/02/17 10:27) Home Medications: Ambulatory Orders Oxycodone HCl/Acetaminophen [Percocet 10-325 mg Tablet] 10 - 325 mg PO QID PRN 03/13/13 Lamotrigine [Lamictal] 100 mg PO QDAC 12/20/14 Pantoprazole Sodium [Protonix] 40 mg PO BID 12/20/14 Lamotrigine [Lamictal] 200 mg PO BEDTIME 05/03/16 Dextroamphetamine/Amphetamine [Adderall 10 Mg Tablet] 10 mg PO BID 02/19/18 Disposition Discussed With: Patient, Family
== END 2018-08-24 19:50 | disposition home or self-care (01) ==
LOC: ED 17:50
DX: M54.2 Cervicalgia (principal); M54.9 Dorsalgia, unspecified; W01.0XXA Fall on same level from slipping, tripping and stumbling without subsequent striking against object, initial encounter; F17.210 Nicotine dependence, cigarettes, uncomplicated
CPT/HCPCS: 96372; 99283

== ENCOUNTER 2018-09-15 10:02 | Day surgery (SDC) | payer OTHER ==
[2018-09-15 10:52] VITALS: TEMP 98.3
[2018-09-15] MEDS ORDERED: LIDOCAINE 1% 20 ML MDV ID STA (10:54)
[2018-09-15] MEDS ORDERED: LIDOCAINE HCL 2% LUER-JET ONE (11:40)
[2018-09-15] MEDS ORDERED: VERSED ONE (11:40)
[2018-09-15] MEDS ORDERED: DIPRIVAN 20 ML VIAL IVP ONE (11:40)
[2018-09-15] MEDS ORDERED: SUBLIMAZE ONE (11:40)
[2018-09-15 12:13] VITALS: BP 110/60
--- NOTE | 2018-09-16 13:21 | OP ---
PROCEDURE: EGD (ESOPHAGOGASTRODUODENOSCOPY) WITH TTS BALLOON DILATATION. ENDOSCOPIST: Napoleon MUNIZ M.D. INDICATION: DYSPHAGIA INSTRUMENT: GIFH-190, TTS BALLOON DILATOR 12, 13.5, 15 MEDICATION: PER ANESTHESIA. PROCEDURE: The patient was positioned for endoscopy. The endoscope was advanced through the oropharynx into the esophagus. The distal esophagus was noted for a peptic stricture. The scope would not pass beyond this level. Estimated diameter 9 to 10 mm. A 12-13.5-15 balloon was advanced through the stricture and dilated to 12 mm. This allowed adequate passage of the scope. The stomach appears a bit dilated with a small amount of residual fluid. The pylorus was tight but the scope would pass through this area. Some inflammatory change noted within the duodenum although I saw no mass. The scope was then withdrawn back into the stomach. Retroflex exam reveals a normal cardia. We suctioned out as much of the fluid as possible and decompressed the stomach. We then moved back into the esophagus. Again, inflammatory change noted in the distal esophagus consistent with peptic injury. Given the dilated stomach, I questioned if she has potential gastric outlet obstruction or delayed gastric emptying. We replaced the 12 mm balloon and dilated to 12 mm throughout the length of the stricture. The remaining esophagus appeared essentially normal. PLAN: 1. I would like to stop the Protonix and change her to Dexilant 60 mg q.day, get a barium esophagram with an upper GI. 2. Will see her back in the office in 2 weeks. [facility]ITAL[facility]
== END 2018-09-15 12:45 | disposition home or self-care (01) ==
LOC: SURG 10:02
PROVIDERS: ATTEND Internal Medicine Gastroenterology
DX: R13.10 Dysphagia, unspecified (principal); K22.2 Esophageal obstruction